=== PATIENT | female | born 1940 ===

== ENCOUNTER 2021-11-27 07:30 | Inpatient (IN) | payer OTHER ==
[~2021-11-27] VITALS: Ht 160 cm; Wt 81.6 kg
[2021-11-27] MEDS ORDERED: SINGULAIR10 MG PO (09:25)
[2021-11-27] MEDS ORDERED: COZAAR25 MG PO (09:25)
[2021-11-27] MEDS ORDERED: NAPROXEN500 MG PO (09:25)
[2021-12-02] MEDS ORDERED: NUCALA100 MG (08:24)
[2021-12-02] MEDS ORDERED: DICLOFENAC SOD100 GM (08:24)
[2021-12-02] MEDS ORDERED: CELECOXIB100 MG (08:24)
[2021-12-02] MEDS ORDERED: WIXELA 250-501 EACH (08:25)
[2021-12-02] MEDS ORDERED: LATANOPROST2.5 ML (08:25)
[2021-12-02] MEDS ORDERED: AZELASTINE205.5 MCG/ (08:25)
[2021-12-03] MEDS ORDERED: OXYC1TAB9 PO (07:47)
[2021-12-03] MEDS ORDERED: INTEGRA PLUS C1 EACH PO (07:47)
[2021-12-03] MEDS ORDERED: BACTRIM DS TAB1 EACH PO (07:47)
[2021-12-03] MEDS ORDERED: XARELTO10 MG PO (07:47)
== END 2021-12-03 18:43 | disposition home or self-care (01) | DRG 470 ==
LOC: SURH 12-01 06:32 → O/R 12-01 06:32 → SURG 12-01 07:30 → SURH 12-01 14:48
PROVIDERS: ADMIT Orthopaedic Surgery Sports Medicine; ATTEND Orthopaedic Surgery Sports Medicine
PROC: 0SRD0J9 Replacement of Left Knee Joint with Synthetic Substitute, Cemented, Open Approach (ICD-10-PCS; principal; 2021-12-01 12:15)
DX: M17.12 Unilateral primary osteoarthritis, left knee (principal); Z96.652 Presence of left artificial knee joint; I10 Essential (primary) hypertension; Z20.822 Contact with and (suspected) exposure to COVID-19

== ENCOUNTER 2024-10-04 12:17 | Outpatient (CLI) | payer OTHER ==
[~2024-10-04 12:17] MED LIST: AZELASTINE205.5 MCG/; BACTRIM DS TAB1 EACH PO; CELECOXIB100 MG; COZAAR25 MG PO; DICLOFENAC SOD100 GM; INTEGRA PLUS C1 EACH PO; LATANOPROST2.5 ML; NAPROXEN500 MG PO; NUCALA100 MG; OXYC1TAB9 PO; SINGULAIR10 MG PO; WIXELA 250-501 EACH; XARELTO10 MG PO
== END 2024-10-04 12:19 | disposition home or self-care (01) ==
LOC: RAD 12:17
PROVIDERS: ATTEND Orthopaedic Surgery
DX: M79.671 Pain in right foot (principal)